=== PATIENT | female | born 1990 | race Hispanic/Latino ===

== ENCOUNTER 2019-03-23 23:49 | Emergency (ER) | payer OTHER ==
[2019-03-24 01:04] LABS: BILIRUBIN,URINE Negative (NEGATIVE); COLOR,URINE Yellow (YELLOW); GLUCOSE, URINE (UA) Negative (NEGATIVE); KETONES,URINE Negative (NEGATIVE); LEUKOCYTE ESTERASE ,URINE Large (NEGATIVE); NITRATE,URINE Negative (NEGATIVE); OCCULT BLOOD,URINE Moderate (NEGATIVE); PH,URINE 5.5 (5.0-8.0); PROTEIN,URINE Trace mg/dL (NEGATIVE); UROBILINOGEN,URINE 0.2 mg/dL (0.2-1.0)
[2019-03-24 01:07] LABS: HCG,QUAL RESULT NEGATIVE (NEGATIVE)
[2019-03-24 01:08] LABS: APPEARANCE,URINE CLOUDY (CLEAR)
[2019-03-24] MEDS ORDERED: KETOROLAC TROMETHAMINE 30MG/ML ONE (01:10)
[2019-03-24 01:19] LABS: BACTERIA,URINE Moderate /HPF (None Seen); TRICHOMONAS,URINE Moderate /LPF (None Seen); WBC,URINE >100 /HPF (0-1)
== END 2019-03-24 01:33 | disposition home or self-care (01) ==
LOC: EDH 23:49
DX: N73.8 Other specified female pelvic inflammatory diseases (principal); Z98.890 Other specified postprocedural states; Z87.442 Personal history of urinary calculi
CPT/HCPCS: 81001; 81025; 96372; 99284; J1885